=== PATIENT | male | born 1935 | race Caucasian/White ===

== ENCOUNTER → 2016-05-23 | Outpatient (CLI) | payer MEDICARE | END | disposition home or self-care (01) | LOC: GMAH 10:31 | PROVIDERS: ATTEND Family Medicine | DX: N40.0 Benign prostatic hyperplasia without lower urinary tract symptoms (principal); I10 Essential (primary) hypertension | CPT/HCPCS: 84550; G0103 ==

== ENCOUNTER → 2017-05-28 | Outpatient (CLI) | payer MEDICARE | LOC: GMAH 10:34 | PROVIDERS: ATTEND Family Medicine | DX: E78.2 Mixed hyperlipidemia (principal); N40.0 Benign prostatic hyperplasia without lower urinary tract symptoms; Z12.5 Encounter for screening for malignant neoplasm of prostate | CPT/HCPCS: 84443; 84550; G0103 ==

== ENCOUNTER 2018-02-02 00:49 | Emergency (ER) | payer MEDICARE ==
[2018-02-02] MEDS: ENOXAPARIN SODIUM 80 MG/0.8 ML SYG SUBCU ONE (01:21)
[2018-02-02] MEDS: ASPIRIN TABLET 325 MG TAB PO ONE (01:21)
[2018-02-02] MEDS: METOPROLOL TARTRATE 25 MG TAB PO ONE (01:21)
--- NOTE | 2018-02-02 01:58 | RAD ---
EXAM: PA and LATERAL CHEST RADIOGRAPHS CLINICAL INDICATION: New atrial fibrillation. COMPARISON: None. FINDINGS: Cardiac size is normal. Mild bibasilar pulmonary congestion. Lungs are otherwise clear. No pleural effusions, pneumothorax or free peritoneal gas. No suspicious hilar or mediastinal lymphadenopathy. Bones are intact on these two views. IMPRESSION: Mild bibasilar pulmonary congestion. Otherwise, normal chest radiographs. Electronically signed by: Wild Hicks MD 02/02/2018 1:56 AM [employer]
[2018-02-02 02:26] VITALS: O2SAT 97
[2018-02-02] MEDS: METOPROLOL TARTRATE 50 MG TAB PO ONE (03:49)
--- NOTE | 2018-02-02 05:09 | ED.PDOC ---
History of Present Illness - General Chief Complaint: Cardiovascular Problem Stated Complaint: irregular heartbeat Time Seen by Provider: 02/02/18 01:04 Source: patient Exam Limitations: no limitations - History of Present Illness Initial Comments: the patient is a very pleasant 82-year-old male presenting to the emergency room secondary to sensation of palpitations. It started 1-2 hours before arrival. He checked his heart rate on his blood pressure machine and it was in the 130s to 140s. The patient is a previous EMT and very knowledgeable. He is not having any chest pain or shortness of breath. No syncope or near syncope. No previous episodes of any heart rhythm issue. He is in atrial fibrillation with RVR on telemetry monitoring. Timing/Duration: 1-3 hours Severity: mild Improving Factors: nothing Worsening Factors: nothing Associated Symptoms: denies symptoms Allergies/Adverse Reactions: Allergies NO KNOWN ALLERGY Allergy (Verified 02/02/18 01:08) Home Medications: Ambulatory Orders Amlodipine Besylate 02/02/18 Aspirin [Aspirin EC] 81 mg PO 02/02/18 Diltiazem HCl Coated Beads [Diltiazem HCl ER] 120 mg PO BID #40 cap 02/02/18 Lisinopril 02/02/18 Metoprolol Succinate 02/02/18 Rivaroxaban [Xarelto] 20 mg PO DAILY #20 tablet 02/02/18 Review of Systems - Review of Systems Constitutional: States: no symptoms reported EENTM: States: no symptoms reported Respiratory: States: no symptoms reported Cardiology: States: palpitations Gastrointestinal/Abdominal: States: no symptoms reported Genitourinary: States: no symptoms reported Musculoskeletal: States: no symptoms reported Skin: States: no symptoms reported Neurological: States: no symptoms reported Endocrine: States: no symptoms reported All other Systems: No Change from Baseline Past Medical History (General) - Patient Medical History Hx Seizures: No Hx Stroke: No Hx Dementia: No Hx Asthma: No Hx of COPD: No Hx Cardiac Disorders: No Hx Congestive Heart Failure: No Hx Pacemaker: No Hx Hypertension: Yes Hx Thyroid Disease: No Hx Diabetes: No Hx Gastroesophageal Reflux: No Hx Renal Disease: No Hx Cancer: No Hx of HIV: No Hx Hepatitis C: No Hx MRSA: No Family Medical History - Family History Mother Family History: Unknown Physical Exam - Physical Exam General Appearance: Alert, Comfortable, No apparent distress Eye Exam: bilateral normal Ears, Nose, Throat: hearing grossly normal, normal ENT inspection, normal pharynx Neck: non-tender, full range of motion, supple Respiratory: lungs clear, normal breath sounds, no respiratory distress, no accessory muscle use Cardiovascular/Chest: normal peripheral pulses, no edema, tachycardia, irregularly irregular Peripheral Pulses: radial,right: 2+, radial,left: 2+, dorsalis pedis,right: 2+, dorsalis pedis,left: 2+ Gastrointestinal/Abdominal: non tender, soft Rectal Exam: deferred Back Exam: no CVA tenderness, no vertebral tenderness Extremity: normal range of motion, non-tender, normal inspection, no pedal edema , normal capillary refill 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, alert, normal mood/affect, oriented x 3 Skin Exam: normal color Comments: Vital Signs - 24 hr 02/02/18 02/02/18 02/02/18 00:55 01:16 01:54 Temperature 97.7 F Pulse Rate [ 134 H 128 H 91 H monitor] Respiratory 18 16 Rate Blood Pressure 125/83 120/78 [Left Arm] O2 Sat by Pulse 99 96 Oximetry 02/02/18 02/02/18 02/02/18 02:25 03:00 03:55 Temperature Pulse Rate [ 81 89 92 H monitor] Respiratory 18 16 16 Rate Blood Pressure 121/67 115/62 113/80 [Left Arm] O2 Sat by Pulse 97 97 97 Oximetry Progress - Progress Progress: 02/02/18 05:11 the patient is an 82-year-old male presenting with what appears to be new onset A. fib with RVR initially in the 130s to 140s. The patient has achieved moderate rate control in the range of 90-110 with a repeat oral dose of metoprolol and a dose of IV diltiazem. He has also received a dose of Lovenox. An initial set of cardiac enzymes as well as a repeat approximately 4- 5 hours after start of symptoms shows no evidence of any heart attack at this point. It is recommended that the patient come into the hospital for observation and a longer rule out as well as medication adjustments for heart rate control. The patient has declined this. He is to contact his primary care doctor to get set up with the hopper feeder preferably later this week. He is to increase the metoprolol that he is taking currently to twice daily. He will be written for Cardizem twice daily as well to help with rate control. Additionally he will be written for xarelto daily as a blood thinner. He does need to keep follow-up with cardiology. No evidence of hypotension. No evidence of heart attack at this point. ER warnings were given. - Results/Orders Results/Orders: 02/02/18 01:15 Telemetry .CONTINUOUS B-TYPE NATRIURETIC PEPTIDE/BNP Stat CARDIAC ENZYME GROUP Stat COMPLETE METABOLIC PROFILE Stat MAGNESIUM Stat THYROID STIMULATING HORMONE Stat 02/03/18 01:15 EKG STAT shows A. fib with RVR at 118 bpm. Borderline R-wave progression. Very mild left axis deviation. Occasional PVCs. No ST segment or T-wave changes definitive for acute ischemia. Normal QT interval. Laboratory Results - last 24 hr 02/02/18 02/02/18 02/02/18 01:15 01:15 01:15 WBC 6.8 RBC 4.57 L Hgb 14.2 Hct 42.2 MCV 92.4 MCH 31.0 MCHC 33.6 RDW 13.7 Plt Count 175 MPV 8.5 Absolute Neuts (auto) 4.30 Absolute Lymphs (auto) 1.70 Absolute Monos (auto) 0.50 Absolute Eos (auto) 0.30 Absolute Basos (auto) 0.10 Neutrophils % 62.8 Lymphocytes % 25.4 Monocytes % 6.8 Eosinophils % 4.1 Basophils % 0.9 PT 10.3 INR 1.03 PTT (SP) 27.8 D-Dimer, Quantitative 0.42 Sodium 139 Potassium 3.8 Chloride 105 Carbon Dioxide 28 Anion Gap 9.8 L BUN 25 H Creatinine 1.45 H BUN/Creatinine Ratio 17.2 Random Glucose 115 H Serum Osmolality 282.9 Calcium 9.3 Magnesium 1.9 Total Bilirubin 0.4 AST 24 ALT 16 Alkaline Phosphatase 51 Creatine Kinase 109 CK-MB (CK-2) 2.3 CK-MB (CK-2) % Troponin I < 0.02 B-Natriuretic Peptide 292.0 H* Serum Total Protein 7.1 Albumin 4.2 Globulin 2.9 Albumin/Globulin Ratio 1.4 TSH 2.78 Urine Color Urine Appearance Urine pH Ur Specific [place] Urine Protein Urine Glucose (UA) Urine Ketones Urine Blood Urine Nitrite Urine Bilirubin Urine Urobilinogen Ur Leukocyte Esterase Urine RBC Urine WBC Ur Epithelial Cells Urine Bacteria 02/02/18 02/02/18 01:45 04:04 WBC RBC Hgb Hct MCV MCH MCHC RDW Plt Count MPV Absolute Neuts (auto) Absolute Lymphs (auto) Absolute Monos (auto) Absolute Eos (auto) Absolute Basos (auto) Neutrophils % Lymphocytes % Monocytes % Eosinophils % Basophils % PT INR PTT (SP) D-Dimer, Quantitative Sodium Potassium Chloride Carbon Dioxide Anion Gap BUN Creatinine BUN/Creatinine Ratio Random Glucose Serum Osmolality Calcium Magnesium Total Bilirubin AST ALT Alkaline Phosphatase Creatine Kinase 98 CK-MB (CK-2) 2.2 CK-MB (CK-2) % Not Reportable Troponin I < 0.02 B-Natriuretic Peptide Serum Total Protein Albumin Globulin Albumin/Globulin Ratio TSH Urine Color Yellow Urine Appearance Clear Urine pH 6.5 Ur Specific [place] 1.010 Urine Protein Negative Urine Glucose (UA) Negative Urine Ketones Negative Urine Blood Trace-intact H Urine Nitrite Negative Urine Bilirubin Negative Urine Urobilinogen 0.2 Ur Leukocyte Esterase Negative Urine RBC 0 Urine WBC 0-1 Ur Epithelial Cells 0 Urine Bacteria 0 chest x-ray shows mild lower pulmonary congestion. Departure - Departure Clinical Impression: Atrial fibrillation with rapid ventricular response Disposition: Discharge to Home or Self Care Condition: Fair Departure Forms: ED Discharge - Pt. Copy, Patient Portal Self Enrollment Instructions: Atrial Fibrillation (DC) Diet: low salt diet Activity: increase activity as tolerated Referrals: Juma Grove MD [Primary Care Provider] - 1-2 Days Prescriptions: Diltiazem HCl Coated Beads [Diltiazem HCl ER] 120 mg PO BID #40 cap Rivaroxaban [Xarelto] 20 mg PO DAILY #20 tablet Home Medications: Ambulatory Orders Amlodipine Besylate 02/02/18 Aspirin [Aspirin EC] 81 mg PO 02/02/18 Diltiazem HCl Coated Beads [Diltiazem HCl ER] 120 mg PO BID #40 cap 02/02/18 Lisinopril 02/02/18 Metoprolol Succinate 02/02/18 Rivaroxaban [Xarelto] 20 mg PO DAILY #20 tablet 02/02/18 Additional Instructions: the patient is an 82-year-old male presenting with what appears to be new onset A. fib with RVR initially in the 130s to 140s. The patient has achieved moderate rate control in the range of 90-110 with a repeat oral dose of metoprolol and a dose of IV diltiazem. He has also received a dose of Lovenox. An initial set of cardiac enzymes as well as a repeat approximately 4- 5 hours after start of symptoms shows no evidence of any heart attack at this point. It is recommended that the patient come into the hospital for observation and a longer rule out as well as medication adjustments for heart rate control. The patient has declined this. He is to contact his primary care doctor to get set up with the hopper feeder preferably later this week. He is to increase the metoprolol that he is taking currently to twice daily. He will be written for Cardizem twice daily as well to help with rate control. he can hold his amlodipine once he starts the Cardizem. Additionally he will be written for xarelto daily as a blood thinner. He does need to keep follow-up with cardiology. No evidence of hypotension. No evidence of heart attack at this point. ER warnings were given.
[2018-02-02 05:34] VITALS: BP 116/70; TEMP 97.9
== END 2018-02-02 05:36 | disposition left against medical advice (07) ==
LOC: ER 00:49
DX: I48.91 Unspecified atrial fibrillation (principal); R00.0 Tachycardia, unspecified; I49.3 Ventricular premature depolarization; I10 Essential (primary) hypertension; Z53.29 Procedure and treatment not carried out because of patient's decision for other reasons

== ENCOUNTER 2018-04-07 10:10 | Emergency (ER) | payer MEDICARE ==
--- NOTE | 2018-04-07 10:59 | RAD ---
EXAM DESCRIPTION: Chest,1 View CLINICAL HISTORY: near syncope, afib with rvr COMPARISON: Chest radiograph dated February 02, 2018 FINDINGS: Cardiomediastinal silhouette and pulmonary vascularity are within normal limits. Lungs are clear without focal consolidations. Bilateral costophrenic angles are sharp. No pneumothorax. Visualized osseous structures show no destructive lesions. IMPRESSION: No acute cardiopulmonary process. Electronically signed by: Ke Damian MD 04/07/2018 10:58 AM [employer]
[2018-04-07] MEDS ORDERED: SODIUM CHLORIDE 0.9% 1000ML 500 ML IVS ONE (12:46)
--- NOTE | 2018-04-07 15:01 | ED.PDOC ---
History of Present Illness - General Chief Complaint: Cardiovascular Problem Stated Complaint: Weakness, unable to focus Time Seen by Provider: 04/07/18 10:17 Source: patient Exam Limitations: no limitations - History of Present Illness Initial Comments: the patient is an 82-year-old male presenting to the emergency room secondary to a near syncopal episode while at a caf this morning. He did not pass all the way out. No chest pain and no real feeling of palpitations. He had just seen his primary care doctor earlier and had fairly normal vital signs at that time but he had made the appointment due to an elevated heart rate on his blood pressure check in the morning. He does have a known history of atrial fibrillation for at least the last few months. He has not been able to see a turbine mechanic yet but it was scheduled to see one this coming Friday. He is on blood thinners in the form of eliquis. he is actually feeling much better about time he arrived here. EMS recorded blood pressure 90/50 with a heart rate in the 110s at the caf. He is still of course in atrial fibrillation. It seems the patient has been taking his metoprolol and Cardizem and lisinopril at the same time each morning. Timing/Duration: momentarily Severity: moderate Improving Factors: nothing Worsening Factors: nothing Associated Symptoms: weakness Allergies/Adverse Reactions: Allergies NO KNOWN ALLERGY Allergy (Verified 02/02/18 01:08) Home Medications: Ambulatory Orders Aspirin [Aspirin EC] 81 mg PO DAILY 02/02/18 Lisinopril 20 mg PO DAILY 02/02/18 Metoprolol Succinate [Metoprolol Succinate ER] 50 mg PO DAILY 02/02/18 Apixaban [Eliquis] 2.5 mg PO BID 04/07/18 Diltiazem HCl Coated Beads [Diltiazem HCl ER] 240 mg PO DAILY 04/07/18 Review of Systems - Review of Systems Constitutional: States: malaise EENTM: States: no symptoms reported Respiratory: States: no symptoms reported Cardiology: States: no symptoms reported Gastrointestinal/Abdominal: States: no symptoms reported Genitourinary: States: no symptoms reported Musculoskeletal: States: no symptoms reported Skin: States: no symptoms reported Neurological: States: see HPI, anxiety Endocrine: States: no symptoms reported All other Systems: No Change from Baseline Past Medical History (General) - Patient Medical History Hx Seizures: No Hx Stroke: No Hx Dementia: No Hx Asthma: No Hx of COPD: Yes Hx Cardiac Disorders: Yes - Atrial fib Hx Congestive Heart Failure: No Hx Pacemaker: No Hx Hypertension: Yes Hx Thyroid Disease: No Hx Diabetes: No Hx Gastroesophageal Reflux: No Hx Renal Disease: No Hx Cancer: No Hx of HIV: No Hx Hepatitis C: No Hx MRSA: No - Vaccination History Hx Influenza Vaccination: Yes - 2018 Hx Pneumococcal Vaccination: No - Social History Hx Tobacco Use: No Family Medical History - Family History Mother Family History: Unknown Physical Exam - Physical Exam General Appearance: Alert, Anxious, Comfortable, No apparent distress Eye Exam: bilateral normal Ears, Nose, Throat: hearing grossly normal, normal ENT inspection, normal pharynx Neck: full range of motion, supple Respiratory: lungs clear, normal breath sounds, no respiratory distress, no accessory muscle use Cardiovascular/Chest: normal peripheral pulses, no edema, other - borderline tachycardia with atrial fibrillation. Heart rates have ranged from 75-115. 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 The patient was technically tilt positive by blood pressure from lying to sitting. Progress - Progress Progress: 04/07/18 15:04 the patient is an 82-year-old male presenting to the emergency room secondary to a near syncopal episode which involved atrial fibrillation with rapid ventricular rate and mild hypotension. No evidence of any recurrence. He does have some mild dehydration as well and did receive a small IV fluid bolus. he should slightly increase his fluid intake at home. The patient is reluctant to be monitored any longer here, so he will be discharged for close follow-up with his primary care doctor. laboratory work is reassuring, with no rise in cardiac enzymes. Chest x-ray is reassuring. No evidence of any fluid overload. It is possible that the patient's medicines may have accumulated on him this morning as he takes all 3 of his blood pressure and heart rate control medications in the morning at same time. The patient has been discussed with his primary care doctor, Dr. Grove. He has agreed to have the patient change the Cardizem to a nighttime dose, which may also help prevent morning tachycardia due to medications wearing off. If he continues to have episodes of hypotension after making this medication change, then consideration could be given towards temporarily holding or halving his lisinopril dosage. of note, the patient's BUN and BNP are both elevated in comparison to prior. this may possibly be an indicator that the patient is hypotensive a little more of the t giorgio than has previously been known. The patient does need to keep follow-up with his turbine mechanic. Certainly an echocardiogram in the very near future is warranted and he may require some form of resynchronization therapy to prevent progression of congestive heart failure. ER warnings were given for any worsening. - Results/Orders Results/Orders: chest x-ray shows no evidence of significant fluid overload or infiltrate. No cardiomegaly. Laboratory Tests 04/07/18 04/07/18 04/07/18 10:25 10:25 12:25 WBC 8.4 RBC 4.75 Hgb 14.8 Hct 44.3 MCV 93.4 MCH 31.1 H MCHC 33.3 RDW 13.9 Plt Count 203 MPV 8.7 Absolute Neuts (auto) 6.30 Absolute Lymphs (auto) 1.40 Absolute Monos (auto) 0.50 Absolute Eos (auto) 0.20 Absolute Basos (auto) 0.00 Neutrophils % 74.9 Lymphocytes % 16.9 L Monocytes % 5.4 Eosinophils % 2.2 Basophils % 0.6 Sodium 137 Potassium 4.2 Chloride 105 Carbon Dioxide 24 Anion Gap 12.2 BUN 23 H Creatinine 1.78 H BUN/Creatinine Ratio 12.9 Random Glucose 125 H Serum Osmolality 279.0 Calcium 8.9 Magnesium 1.9 Total Bilirubin 0.7 AST 20 ALT 15 Alkaline Phosphatase 53 Creatine Kinase 73 CK-MB (CK-2) 2.0 CK-MB (CK-2) % Not Reportable Troponin I < 0.02 B-Natriuretic Peptide 788.0 H* Serum Total Protein 7.0 Albumin 3.9 Globulin 3.1 Albumin/Globulin Ratio 1.3 Urine Color Yellow Urine Appearance Clear Urine pH 5.5 Ur Specific [place] >= 1.030 Urine Protein 30 Urine Glucose (UA) Negative Urine Ketones Negative Urine Blood Moderate H Urine Nitrite Negative Urine Bilirubin Negative Urine Urobilinogen 0.2 Ur Leukocyte Esterase Negative Urine RBC 0 Urine WBC 0-1 Ur Epithelial Cells 0-1 Urine Bacteria 0 Urine Mucus Small 04/07/18 14:16 WBC RBC Hgb Hct MCV MCH MCHC RDW Plt Count MPV Absolute Neuts (auto) Absolute Lymphs (auto) Absolute Monos (auto) Absolute Eos (auto) Absolute Basos (auto) Neutrophils % Lymphocytes % Monocytes % Eosinophils % Basophils % Sodium Potassium Chloride Carbon Dioxide Anion Gap BUN Creatinine BUN/Creatinine Ratio Random Glucose Serum Osmolality Calcium Magnesium Total Bilirubin AST ALT Alkaline Phosphatase Creatine Kinase 62 CK-MB (CK-2) 1.7 CK-MB (CK-2) % Not Reportable Troponin I < 0.02 B-Natriuretic Peptide Serum Total Protein Albumin Globulin Albumin/Globulin Ratio Urine Color Urine Appearance Urine pH Ur Specific [place] Urine Protein Urine Glucose (UA) Urine Ketones Urine Blood Urine Nitrite Urine Bilirubin Urine Urobilinogen Ur Leukocyte Esterase Urine RBC Urine WBC Ur Epithelial Cells Urine Bacteria Urine Mucus Departure - Departure Clinical Impression: Near syncope, Atrial fibrillation with RVR Disposition: Discharge to Home or Self Care Condition: Fair Departure Forms: ED Discharge - Pt. Copy, Patient Portal Self Enrollment Instructions: Near Fainting (DC) Diet: regular diet Activity: increase activity as tolerated Referrals: Juma Grove MD [Primary Care Provider] - 1-5 Days Home Medications: Ambulatory Orders Aspirin [Aspirin EC] 81 mg PO DAILY 02/02/18 Lisinopril 20 mg PO DAILY 02/02/18 Metoprolol Succinate [Metoprolol Succinate ER] 50 mg PO DAILY 02/02/18 Apixaban [Eliquis] 2.5 mg PO BID 04/07/18 Diltiazem HCl Coated Beads [Diltiazem HCl ER] 240 mg PO DAILY 04/07/18 Additional Instructions: the patient is an 82-year-old male presenting to the emergency room secondary to a near syncopal episode which involved atrial fibrillation with rapid ventricular rate and mild hypotension. No evidence of any recurrence. He does have some mild dehydration as well and did receive a small IV fluid bolus. he should slightly increase his fluid intake at home. The patient is reluctant to be monitored any longer here, so he will be discharged for close follow-up with his primary care doctor. laboratory work is reassuring, with no rise in cardiac enzymes. Chest x-ray is reassuring. No evidence of any fluid overload. It is possible that the patient's medicines may have accumulated on him this morning as he takes all 3 of his blood pressure and heart rate control medications in the morning at same time. The patient has been discussed with his primary care doctor, Dr. Grove. He has agreed to have the patient change the Cardizem to a nighttime dose, which may also help prevent morning tachycardia due to medications wearing off. If he continues to have episodes of hypotension after making this medication change, then consideration could be given towards temporarily holding or halving his lisinopril dosage. of note, the patient's BUN and BNP are both elevated in comparison to prior. this may possibly be an indicator that the patient is hypotensive a little more of the time than has previously been known. The patient does need to keep follow-up with his turbine mechanic. Certainly an echocardiogram in the very near future is warranted and he may require some form of resynchronization therapy to prevent progression of congestive heart failure. ER warnings were given for any worsening.
[2018-04-07 15:20] VITALS: BP 117/80; O2SAT 98
== END 2018-04-07 15:22 | disposition home or self-care (01) ==
LOC: ER 10:10
DX: R55 Syncope and collapse (principal); I48.91 Unspecified atrial fibrillation; R00.0 Tachycardia, unspecified; J44.9 Chronic obstructive pulmonary disease, unspecified; I10 Essential (primary) hypertension; Z79.899 Other long term (current) drug therapy; Z79.82 Long term (current) use of aspirin
CPT/HCPCS: 36415; 71045; 80053; 81001; 82550; 82553; 83735; 83880; 84484; 85025; 87502; 93005; J7030

== ENCOUNTER → 2018-06-15 | Outpatient (CLI) | payer MEDICARE | LOC: GMAH 13:12 | PROVIDERS: ATTEND Family Medicine | DX: I10 Essential (primary) hypertension (principal); Z12.5 Encounter for screening for malignant neoplasm of prostate | CPT/HCPCS: 84443; 84550; G0103 ==

== ENCOUNTER → 2018-12-16 | Outpatient (CLI) | payer MEDICARE | LOC: GMAM 11:38 | PROVIDERS: ATTEND Family Medicine | DX: Z12.5 Encounter for screening for malignant neoplasm of prostate (principal); E55.9 Vitamin D deficiency, unspecified; I10 Essential (primary) hypertension; E74.39 Other disorders of intestinal carbohydrate absorption; E56.9 Vitamin deficiency, unspecified; J44.1 Chronic obstructive pulmonary disease with (acute) exacerbation | CPT/HCPCS: 82306; G0103 ==

== ENCOUNTER 2018-12-30 09:28 | Observation (INO) | payer MEDICARE ==
[2018-12-30] MEDS ORDERED: SODIUM CHLORIDE 0.9% (FLUSH) 10 ML SYG IV PRN (12:08)
[2018-12-30] MEDS ORDERED: ACETAMINOPHEN 325 MG TAB PO PRN (12:08)
[2018-12-30] MEDS ORDERED: MORPHINE SULFATE INJ 10 MG/ML VIAL IV PRN (12:08)
[2018-12-30] MEDS ORDERED: NITROGLYCERIN 0.4 MG 25 EA TAB SL PRN (12:08)
[2018-12-30] MEDS ORDERED: IV SET AND CAP CHANGE INJ INJ SCH (12:30)
--- NOTE | 2018-12-30 14:34 | RAD ---
EXAM DESCRIPTION: Chest,1 View CLINICAL HISTORY: hypotension COMPARISON: April 07, 2018 IMPRESSION: Single AP portable upright view of the chest shows cardiac silhouette and pulmonary vasculature to be within normal limits. Lungs are normally aerated and clear. No obvious pleural effusion or pneumothorax is seen. Electronically signed by: Ty Kramer MD 12/30/2018 2:32 PM CDT
[2018-12-30] MEDS ORDERED: SODIUM CHLORIDE 0.45% 1000ML 1,000 ML IVS ONE (17:09)
[2018-12-30] MEDS ORDERED: APIXABAN 5 MG TAB PO ONE (19:18)
[2018-12-30] MEDS ORDERED: PANTOPRAZOLE SODIUM TAB 40 MG PO ONE (19:19)
[2018-12-30] MEDS: NON-FORMULARY MEDICATION 1 EA MIS (Apixaban [Eliquis] 2.5 MG) PO SCH (20:55)
[2018-12-30] MEDS: SODIUM CHLORIDE 0.9% (FLUSH) 10 ML SYG IV SCH (21:12)
[2018-12-31] MEDS ORDERED: PANTOPRAZOLE SODIUM TAB 40 MG PO SCH (06:30)
[2018-12-31] MEDS ORDERED: APIXABAN 5 MG TAB PO ONE (08:56)
[2018-12-31] MEDS: NON-FORMULARY MEDICATION 1 EA MIS (Apixaban [Eliquis] 2.5 MG) PO SCH (08:57)
[2018-12-31] MEDS ORDERED: METOPROLOL TARTRATE 25 MG TAB PO SCH (09:00)
[2018-12-31] MEDS ORDERED: APIXABAN 5 MG TAB PO SCH (09:00)
[2018-12-31 09:27] VITALS: BP 129/78; TEMP 97.8
[2018-12-31] MEDS: SODIUM CHLORIDE 0.9% (FLUSH) 10 ML SYG IV SCH (09:35)
[2018-12-31 12:46] VITALS: O2SAT 95
--- NOTE | 2018-12-31 14:52 | SSS ---
SUPERVISING PHYSICIAN: Tashi Grace MD DISCHARGE DIAGNOSES: 1. Atrial fibrillation with occasional episodes of an accelerated rate, presently on Eliquis, metoprolol and diltiazem. 2. Hypertension with episodes of hypotension. 3. Questionable syncopal episode without loss of consciousness. May be related to his hypotension and low heart rate although the patient believes it is due to a bad knee. 4. Chronic obstructive pulmonary disease without exacerbation. 5. Hyperlipidemia, presently on no medication. HISTORY OF PRESENT ILLNESS: This is an 83-year-old male patient who was seen in his primary care physician's office on the day of admission. He had been feeling poorly over the last several days and he felt like it was due to his heart rate going up and down as well as his blood pressure being poorly controlled as it was also up and down. He was very anxious. He had had some increased blood pressure over the last few weeks. He was on diltiazem, lisinopril and metoprolol. Hydrochlorothiazide was added and then was discontinued. He was seen in the clinic and had an elevated heart rate that was up to 118. His blood pressure was 90/67. There had been no nausea, vomiting, shortness of breath, but he just felt weak all over and he said he would have periods of his heart rate going up to the 1-teens, then it would go down to his usual rate around 60. 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 Dr. Grace called and asked that we place the patient in observation to watch his heart rate and to adjust his medications. The patient was admitted for observation to the hospital. PAST MEDICAL HISTORY: 1. Atrial fibrillation. 2. Hyperlipidemia. 3. Hypertension. 4. Chronic obstructive pulmonary disease. PAST SURGICAL HISTORY: 1. Hernia repair in 1992. 2. Cataract surgery. OUTPATIENT MEDICATIONS: 1. Eliquis. 2. Metoprolol. 3. Diltiazem. 4. Lisinopril. ALLERGIES: NO KNOWN DRUG ALLERGIES. FAMILY HISTORY: Unknown. SOCIAL HISTORY: He is . 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 He quit smoking in August of this year and he drinks alcohol on a very rare occasion. He denies any illicit drug use. REVIEW OF SYSTEMS: GENERAL: Negative for fever, fatigue or weight changes. HEENT: Negative for sinus symptoms, ear pain, vision changes or sore throat. RESPIRATORY: Negative for wheezing, coughing or shortness of breath. CARDIAC: Positive for occasional palpitations and periods of hypertension/hypotension. Negative for chest pain. GASTROINTESTINAL: Negative for nausea, vomiting, diarrhea, constipation. GENITOURINARY: Negative for hematuria, dysuria or polyuria. MUSCULOSKELETAL: Negative for arthralgias, myalgias. SKIN: Negative for lesions or rashes. NEUROLOGIC: Positive for weakness. Negative for headache or seizures. PSYCHIATRIC: Positive for anxiety. Negative for depression or sadness. PHYSICAL EXAMINATION: VITAL SIGNS: He has been afebrile. Heart rate has run between 54 and 70. Blood pressure has run between 103/66 to 131/80. Respiratory rate 18 to 24. O2 saturation 95% to 96% on room air. GENERAL: This is an 83-year-old male patient who is sitting up in his hospital bed. He is in no acute distress. HEENT: Normocephalic, atraumatic. Pupils are equal and reactive. Oropharynx is clear. NECK: Supple without mass. RESPIRATORY: Essentially clear to auscultation bilaterally. CHEST: There is equal rise and fall of the chest with inspiration and expiration. CARDIOVASCULAR: Bradycardic to regular rate, slightly irregular rhythm. GASTROINTESTINAL: Abdomen is soft, nondistended, nontender. Bowel sounds are positive. SKIN: Warm and dry. NEUROLOGIC: Awake, alert and oriented times three. Cranial nerves II-XII are grossly intact. LABORATORY: WBCs within normal limits. Initial troponin was 0.09. It went up to 0.1 and then was back down to 0.08. Electrolytes were within normal limits. At the clinic, his creatinine was elevated to 2.5. Today after fluids, it is 2.15. Triglycerides 83, LDL 97, HDL 32. Chest x-ray shows single AP portable view of chest shows cardiac silhouette and pulmonary vascular to be within normal limits. Lungs are normally aerated and clear with no obvious pleural effusion or pneumothorax seen. Echocardiogram shows 1) Normal left ventricular size and systolic function with an estimated ejection fraction of 55% to 60% and no obvious regional wall motion abnormality. 2) Normal right ventricular size and function. 3) Mild aortic, trace mitral and tricuspid regurgitation. 4) Normal pericardium. All other labs and films have been reviewed via the EMR. HOSPITAL COURSE: The patient was admitted for observation. There were no complaints of chest pain, nausea, vomiting, shortness of breath. The laboratory monitor showed no accelerated atrial beats. His heart rate remained controlled as well as his blood pressures were within normal limits. His HCTZ and his diltiazem had been discontinued at the clinic per Dr. Forte' request. In the hospital, we held his lisinopril as well as his metoprolol succinate initially. He was given a liter of fluids due to his elevated creatinine. This morning, he was given 25 mg of metoprolol tartrate. He was observed over the next 4 hours. There were again no changes in his heart rate or no increase in blood pressure and he will be discharged with close followup with Dr. Grace and Dr. Forte. DISCHARGE PLAN: The patient will be discharged home in stable condition. He is to return to the hospital for any weakness or syncopal episodes or elevated blood pressure, heart rate. He has an appointment with Dr. Grace in the morning at 8:45. He has an appointment at this point with Dr. Forte on 01/19/19. I have called his office and he is to have an appointment with Dr. Forte this Friday. There was no time given and at his followup appointment, Dr. Grace can decide which appointment he needs to go to for Dr. Forte. If he decides on the 01/05/19 appointment, his office will need to be called to verify the time. His diltiazem and HCTZ were discontinued for now. He was told to hold his lisinopril until he speaks with Dr. Grace. He usually takes 25 mg of metoprolol succinate in the morning. I have changed his metoprolol succinate to [address] Grace can decide if he would like to increase his metoprolol or add his lisinopril back. He normally takes 20 mg of lisinopril and it is recommended that if restarted on the lisinopril to go down to 10 mg. He is to resume his previous diet and activity. He is also to resume his Eliquis. He is to return to the hospital or followup with Dr. Grace's office for any problems or complications. DISCHARGE MEDICATIONS: 1. Eliquis 2.5 mg b.i.d. 2. Metoprolol succinate 25 mg at bedtime. 3. Lisinopril 20 mg daily is presently on hold. #[id number] MTDD
== END 2018-12-31 13:45 | disposition home or self-care (01) ==
LOC: GMAM 09:28 → MS 11:30
PROVIDERS: ADMIT Nurse Practitioner Acute Care; ATTEND Nurse Practitioner Acute Care
DX: I48.0 Paroxysmal atrial fibrillation (principal); I95.9 Hypotension, unspecified; R00.1 Bradycardia, unspecified; I12.9 Hypertensive chronic kidney disease with stage 1 through stage 4 chronic kidney disease, or unspecified chronic kidney disease; N18.3 Chronic kidney disease, stage 3 (moderate); J44.9 Chronic obstructive pulmonary disease, unspecified; E78.2 Mixed hyperlipidemia; R53.1 Weakness; I34.0 Nonrheumatic mitral (valve) insufficiency; I36.1 Nonrheumatic tricuspid (valve) insufficiency; E55.9 Vitamin D deficiency, unspecified; Z79.01 Long term (current) use of anticoagulants; Z79.899 Other long term (current) drug therapy; Z87.891 Personal history of nicotine dependence
CPT/HCPCS: 96360; 96361 ×2; J7799; 82553 ×3; 80053; 80061; 36415 ×3; 85025; 82550 ×3; 84484 ×3; 71045; 94760 ×2; 93306; 93005 ×2

== ENCOUNTER → 2019-05-25 | Outpatient (CLI) | payer MEDICARE | DX: R07.2 Precordial pain (principal) ==

== ENCOUNTER 2019-07-24 18:08 | Observation (INO) | payer MEDICARE ==
[2019-07-24] MEDS ORDERED: SODIUM CHLORIDE 0.9% (FLUSH) 10 ML SYG IV PRN ×2 (18:14→23:22)
[2019-07-24] MEDS ORDERED: SODIUM CHLORIDE 0.9% 1000ML 1,000 ML IVS ONE (18:40)
--- NOTE | 2019-07-24 19:10 | RAD ---
EXAM DESCRIPTION: Chest,1 View CLINICAL HISTORY: 83 years Male low blood pressure COMPARISON: December 30, 2018. TECHNIQUE: AP view of the chest was obtained. FINDINGS: Cardiac size is within normal limits. Central vessels are not increased. Airspace opacity right infrahilar region. No abnormal airspace opacity on left. No effusions bilaterally. No pneumothorax. IMPRESSION: Infiltrate and atelectatic change right infrahilar region. Electronically signed by: Vicky Mahoney MD 07/24/2019 7:09 PM CDT
[2019-07-24] MEDS ORDERED: METOPROLOL TARTRATE INJ 5 MG/5 ML VIAL IV ONE (20:58)
[2019-07-24] MEDS ORDERED: METOPROLOL SUCCINATE XL 25 MG TAB PO SCH (21:00)
--- NOTE | 2019-07-24 21:01 | ED.PDOC ---
History of Present Illness - General Chief Complaint: Blood Pressure Problem Stated Complaint: my blood pressure has been low Time Seen by Provider: 07/24/19 18:13 Source: patient - History of Present Illness Initial Comments: 83 yo male with PMH of HTN, a-fib who presents with cc of low blood pressure and high heart rate. Reports he checks his vitals every morning and night. First notice them to be abnormal yesterday morning with HR of 125 and BP low. Has been persistently abnormal since then. Reports BP became 80s/40s this evening and HR remain elevated so he came in to be checked out. Only symptom reported is slight lightheadedness, which worsens with activity. Denies any chest pain, dyspnea, palpitations, cough, fevers, chills, abd pain, n/v/d, leg swelling. He reports taking his home BP medications but without any improvement. 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 Allergies/Adverse Reactions: Allergies NO KNOWN ALLERGY Allergy (Verified 07/25/19 00:02) Home Medications: Ambulatory Orders Apixaban [Eliquis] 2.5 mg PO BID 04/07/18 Amlodipine Besylate 5 mg PO DAILY 07/24/19 Lisinopril 10 mg PO DAILY 07/24/19 Metoprolol Succinate [Toprol Xl] 50 mg PO BEDTIME 07/24/19 Review of Systems - Review of Systems Review of Systems: 07/25/19 00:54 as per HPI All other Systems: Reviewed and Negative Past Medical History (General) - Patient Medical History Hx Seizures: No Hx Stroke: No Hx Dementia: No Hx Asthma: No Hx of COPD: Yes Hx Cardiac Disorders: Yes - Atrial fib Hx Congestive Heart Failure: No Hx Pacemaker: No Hx Hypertension: Yes Hx Thyroid Disease: No Hx Diabetes: No Hx Gastroesophageal Reflux: No Hx Renal Disease: No Hx Cancer: No Hx of HIV: No Hx Hepatitis C: No Hx MRSA: No - Vaccination History Hx Tetanus, Diphtheria Vaccination: No Hx Influenza Vaccination: Yes - 2018 Hx Pneumococcal Vaccination: No - Social History Hx Tobacco Use: No Hx Alcohol Use: No Hx Substance Use: No Family Medical History - Family History Mother Family History: Unknown Father Family History: Unknown Living Status: Cause of : Old age Physical Exam - Physical Exam General Appearance: Agitated, Comfortable, No apparent distress Eye Exam: bilateral normal Ears, Nose, Throat: normal ENT inspection, normal pharynx, hearing decreased Neck: non-tender, full range of motion, supple, normal inspection Respiratory: chest non-tender, lungs clear, normal breath sounds, no respiratory distress, no accessory muscle use Cardiovascular/Chest: normal peripheral pulses, no edema, no gallop, no JVD, no murmur, irregularly irregular Peripheral Pulses: radial,right: 2+, radial,left: 2+ Gastrointestinal/Abdominal: non tender, soft, no organomegaly Back Exam: normal inspection, no CVA tenderness, no vertebral tenderness Extremity: normal range of motion, non-tender, normal inspection, no pedal edema, no calf tenderness 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 HR improved to 90s-110s with Diltiazem 20 mg IV total now. BP 108/65. Pt remains stable. CXR with ?atelectasis vs infiltrate R infrahilar region per my read. Doubt PNA as no clinical sx's, no fever, WBC normal. Trop <0.02. BNP 680 which seems near his baseline. Pt on exam appears euvolemic. Plan to admit for further treatment and monitoring. Toñito Michelle MD Billing #[id number] 07/24/19 18:14 IV Care:Saline Lock per Protoc QSHIFT Telemetry .ONCE Sodium Chloride 0.9% (Flush) [Saline Flush Syringe] 10 ml IV PRN PRN 07/24/19 18:15 EKG STAT 07/25/19 09:00 Pulse Ox Daily Laboratory Results - last 24 hr 07/24/19 07/24/19 07/24/19 18:42 18:42 18:42 WBC 7.0 RBC 4.89 Hgb 14.9 Hct 44.8 MCV 91.6 MCH 30.6 MCHC 33.4 RDW 14.5 Plt Count 184 MPV 7.9 Absolute Neuts (auto) 4.90 Absolute Lymphs (auto) 1.40 Absolute Monos (auto) 0.50 Absolute Eos (auto) 0.20 Absolute Basos (auto) 0.10 Neutrophils % 69.1 Lymphocytes % 20.4 Monocytes % 6.8 Eosinophils % 2.5 Basophils % 1.2 Sodium 139 Potassium 4.1 Chloride 108 Carbon Dioxide 24 Anion Gap 11.1 L BUN 27 H Creatinine 1.55 H BUN/Creatinine Ratio 17.4 Random Glucose 105 Serum Osmolality 283.0 Lactic Acid Calcium 9.0 Total Bilirubin 0.7 AST 20 ALT 13 Alkaline Phosphatase 36 L Troponin I < 0.02 B-Natriuretic Peptide 680.0 H* Serum Total Protein 7.1 Albumin 4.1 Globulin 3.0 Albumin/Globulin Ratio 1.4 Urine Color Urine Appearance Urine pH Ur Specific [place] Urine Protein Urine Glucose (UA) Urine Ketones Urine Blood Urine Nitrite Urine Bilirubin Urine Urobilinogen Ur Leukocyte Esterase Urine RBC Urine WBC Ur Epithelial Cells Urine Bacteria Urine Mucus 07/24/19 07/24/19 18:42 20:00 WBC RBC Hgb Hct MCV MCH MCHC RDW Plt Count MPV Absolute Neuts (auto) Absolute Lymphs (auto) Absolute Monos (auto) Absolute Eos (auto) Absolute Basos (auto) Neutrophils % Lymphocytes % Monocytes % Eosinophils % Basophils % Sodium Potassium Chloride Carbon Dioxide Anion Gap BUN Creatinine BUN/Creatinine Ratio Random Glucose Serum Osmolality Lactic Acid 0.8 Calcium Total Bilirubin AST ALT Alkaline Phosphatase Troponin I B-Natriuretic Peptide Serum Total Protein Albumin Globulin Albumin/Globulin Ratio Urine Color Yellow Urine Appearance Clear Urine pH 5.5 Ur Specific [place] >= 1.030 Urine Protein Trace Urine Glucose (UA) Negative Urine Ketones Negative Urine Blood Negative Urine Nitrite Negative Urine Bilirubin Negative Urine Urobilinogen 0.2 Ur Leukocyte Esterase Negative Urine RBC 0-1 Urine WBC 0-1 Ur Epithelial Cells 0 Urine Bacteria 0 Urine Mucus Moderate - EKG/XRAY/CT EKG: Atrial, Fibrillation - with RVR, HR 120, no ST elevs or q waves noted, axis & intervals normal, nonspecific ST abnormality noted, compared to 12/30/18 EKG sinus ken now resolved and a-fib is new. XRAY: chest - R infrahilar atelectasis vs infiltrate present per my read, otherwise no acute processes Departure - Departure Clinical Impression: Atrial fibrillation with rapid ventricular response Time of Disposition: 21:00 Disposition: Admit Patient Condition: Fair Home Medications: Ambulatory Orders Apixaban [Eliquis] 2.5 mg PO BID 04/07/18 Amlodipine Besylate 5 mg PO DAILY 07/24/19 Lisinopril 10 mg PO DAILY 07/24/19 Metoprolol Succinate [Toprol Xl] 50 mg PO BEDTIME 07/24/19 Decision To Admit - Decistion To Admit Decision to Admit Reason: Admit from ER Decision to Admit Date: 07/24/19 Decision to Admit Time: 21:01
[2019-07-24] MEDS ORDERED: NITROGLYCERIN 0.4 MG 25 EA TAB SL PRN (23:22)
[2019-07-24] MEDS ORDERED: ACETAMINOPHEN 325 MG TAB PO PRN (23:22)
[2019-07-24] MEDS ORDERED: MORPHINE SULFATE INJ 10 MG/ML VIAL IV PRN (23:22)
[2019-07-24] MEDS ORDERED: NON-FORMULARY MEDICATION 1 EA MIS (Apixaban [Eliquis] 2.5 MG) PO SCH (23:30)
[2019-07-24] MEDS ORDERED: IV SET AND CAP CHANGE INJ INJ SCH (23:30)
[2019-07-24 23:32] VITALS: O2SAT 98
[2019-07-24] MEDS ORDERED: APIXABAN 5 MG TAB PO ONE (23:50)
[2019-07-24] MEDS ORDERED: METOPROLOL SUCCINATE XL 50 MG TAB ONE (23:51)
[2019-07-25] MEDS ORDERED: APIXABAN 5 MG TAB PO ONE (07:16)
[2019-07-25] MEDS ORDERED: LISINOPRIL 10 MG TAB ONE (07:17)
[2019-07-25] MEDS ORDERED: SODIUM CHLORIDE 0.9% (FLUSH) 10 ML SYG IV SCH (09:00)
[2019-07-25] MEDS ORDERED: APIXABAN 5 MG TAB PO SCH (09:00)
[2019-07-25] MEDS ORDERED: LISINOPRIL 10 MG TAB PO SCH (09:00)
[2019-07-25] MEDS ORDERED: amLODIPine BESYLATE 5 MG TAB PO SCH (09:00)
[2019-07-25 09:34] VITALS: BP 124/72; TEMP 98
[2019-07-25] MEDS ORDERED: METOPROLOL SUCCINATE XL 50 MG TAB PO SCH (21:00)
--- NOTE | 2019-07-26 09:19 | SSS ---
SUPERVISING PHYSICIAN: Yoshi Molina MD DATE OF ADMISSION: 07/24/19 DATE OF DISCHARGE: 07/25/19 ADMISSION DIAGNOSIS: 1. Atrial fibrillation with rapid ventricular response. 2. Hypotension secondary to #1. 3. Renal insufficiency, likely due to mild hypovolemia. DISCHARGE DIAGNOSIS: 1. Atrial fibrillation with controlled ventricular rate on beta william and Eliquis. 2. Renal insufficiency, likely due to mild hypovolemia, requiring further followup as an outpatient. CHIEF COMPLAINT: Low blood pressure. HISTORY OF PRESENT ILLNESS: Mr. Griffin is an 83-year-old male patient with a history of atrial fibrillation currently on Eliquis and metoprolol. He presented to the Emergency Room yesterday with complaints of low blood pressure at home and high heart rate. He endorses he first noticed he had abnormal blood pressures and heart rates at home with heart rate around 125. He endorses that his blood pressure at home actually got down in the 80s systolics with elevated heart rate. Given those symptoms and some lightheadedness, he decided to present to the Emergency Department for evaluation. He denied any chest pains, dyspnea, palpitations, fevers, cough, any other significant findings. He does see Dr. Forte for cardiology. His initial workup in the Emergency Room showed normal CBC. Chemistries just showed an elevated creatinine of 1.55. BNP was elevated at 680, but troponins were less than 0.02. Liver functions were all within normal limits as well as electrolytes. Urinalysis was unremarkable. A chest x-ray in the Emergency Room per radiologic interpretation just showed infiltrate and atelectatic changes in the right infrahilar region. His EKG initially I the ER did show atrial fibrillation with rapid ventricular response in the 120s. He was given a bolus of saline as well as Cardizem IV push which resulted in his heart rates going into the 90s and showing to be stable. At that time, his EKG was showing atrial fibrillation with a controlled ventricular rate. Blood pressures initially in the Emergency Room prior to fluids did show he was hypotensive with blood pressure 88/59 with saturation 98% on room air. He was afebrile after he was in a controlled rhythm with atrial fibrillation. Blood pressure at time of admission was 138/81, saturation 98% on room. Given that he was stable without any chest pains, but had a mild hypotension that responded to fluid resuscitation, the patient was placed in observation for continuation of treatment and evaluation and monitoring. PAST MEDICAL HISTORY: 1. Atrial fibrillation diagnosed in 2018 on Eliquis and metoprolol. PAST SURGICAL HISTORY: 1. Bilateral cataract surgeries. HOME MEDICATIONS: 1. Metoprolol 50 mg at bedtime. 2. Eliquis 2.5 mg b.i.d. 3. Lisinopril 10 mg daily. 4. Amlodipine 5 mg daily. ALLERGIES: NO KNOWN DRUG ALLERGIES. FAMILY HISTORY: Unremarkable. 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 He does have a history of smoking, but quit in 2016 and drinks alcohol fairly regularly, he reports around a 6-pack a week. He is and lives by himself. REVIEW OF SYSTEMS: CONSTITUTIONAL: Negative for any fevers, chills, general malaise. HEENT: Negative for headaches, sore throats, earaches, nasal congestion, vision changes. RESPIRATORY: Negative for shortness of breath, coughing, wheezing. CARDIOVASCULAR: As noted in history of present illness. Denies any actual chest pains. GASTROINTESTINAL: Negative for nausea, vomiting, diarrhea, constipation or abdominal pain. GENITOURINARY: Negative for dysuria, hematuria, polyuria. MUSCULOSKELETAL: No muscle aches or joint swelling. SKIN: Negative for lesions, rashes, moles or unexplained changes. NEUROLOGIC: Denies ataxia, seizures syncopal episodes or other focal deficits. HEMATOLOGIC: Denies easy bruising, unexplained bleeding or transfusion reactions. PHYSICAL EXAMINATION: VITAL SIGNS: Blood pressure on admission showed hypotension at 88/59 with heart rate 115 showing atrial fibrillation on the monitor. Temperature 98.1. O2 saturation 98%. On discharge, blood pressure was stable at 124/72, heart rate 63, temperature 98, O2 and therefore 98% on room air. GENERAL: The patient was resting comfortably, did not appear in any acute distress. HEENT: Tympanic membranes clear bilaterally. Oropharynx is pink, moist without any lesions. NECK: Supple, nontender with full range of motion. No jugular venous distention noted. RESPIRATORY: Lung sounds are clear to auscultation bilaterally without any rhonchi, wheezes or rales. CARDIOVASCULAR: Slightly irregular rate and rhythm, but controlled ventricular rate without any appreciable murmurs, gallops, or rubs. ABDOMEN: Soft, nontender. Positive bowel sounds. EXTREMITIES: There is no edema. NEUROLOGIC: Cranial nerves II-XII are grossly intact. Facial features are symmetrical. Extraocular movements are within normal limits. There is no nystagmus noted. The patient is alert and oriented times three. SKIN: Warm, pink and dry. LABORATORY: CBC showed normal white count. Chemistries showed normal electrolytes. Creatinine 1.55. Liver functions all within normal limits. Troponin was less than 0.02. He had an elevated BNP of 680. Urinalysis was within normal limits. RADIOLOGY: Chest x-ray just showed an infiltrate versus atelectatic changes in the right infrahilar region. No other acute changes were noted. HOSPITAL COURSE: Mr. Griffin was admitted from the Emergency Room for atrial fibrillation with rapid ventricular response which was actually controlled prior to admission to the Floor with Cardizem. He was also given his beta william at night. He was given fluid boluses which helped his blood pressure. Again, he was clinically stable at time placement in observation. He had no recurrence of his rapid ventricular response and well controlled ventricular rate with his atrial fibrillation. He had no clinical complaints as far as chest pain, nausea, vomiting, diaphoresis, shortness of breath. No further interventions were required. He was stable and it is felt he can be continued as an outpatient for followup. PLAN: Mr. Griffin was discharged to followup with Dr. Grace in the following week. He was to continue his medications which included beta william, ALEXX and Eliquis. He was to resume his usual diet as tolerated. He was encouraged to stop drinking alcohol. He was encouraged to stay hydrated, but watch his fluid intake to prevent any fluid overload. He was to increase his activity as tolerated. He was told to return to the Emergency Room or call Dr. Grace's office should he have any concerning or worsening symptoms or recurrence of his symptoms. No medications were prescribed on discharge. He was already on metoprolol 50 mg at bedtime and Eliquis 2.5 mg b.i.d. He probably does need to have continued workup given the elevated BNP, but current signs of congestive heart failure. We could not find a current echocardiogram, which probably needs to be followed up on. DISPOSITION: The patient was discharged home. CONDITION ON DISCHARGE: Stable and improved. #[id number] [facility]
== END 2019-07-25 11:50 | disposition home or self-care (01) ==
LOC: ER 18:08 → MS 21:38
PROVIDERS: ADMIT Nurse Practitioner Family; ATTEND Nurse Practitioner Family
DX: I48.20 Chronic atrial fibrillation, unspecified (principal); N28.9 Disorder of kidney and ureter, unspecified; E86.1 Hypovolemia; I95.9 Hypotension, unspecified; I49.3 Ventricular premature depolarization; I10 Essential (primary) hypertension; J44.9 Chronic obstructive pulmonary disease, unspecified; Z79.01 Long term (current) use of anticoagulants; Z79.899 Other long term (current) drug therapy; Z87.891 Personal history of nicotine dependence
CPT/HCPCS: 96374; 96376; J7030; 80053; 81001; 85025; 84484; 83880; 83605; 71045; 94760; 99285; 93005

== ENCOUNTER 2019-10-23 16:00 | Emergency (ER) | payer MEDICARE ==
[2019-10-23 18:28] VITALS: O2SAT 96
--- NOTE | 2019-10-23 18:40 | ED.PDOC ---
History of Present Illness - General Chief Complaint: Respiratory Problem Stated Complaint: cough,low grade fever,wants COVID test Time Seen by Provider: 10/23/19 16:05 Source: patient Exam Limitations: no limitations - History of Present Illness Initial Comments: The patient is a 84-year-old male presented emergency room secondary to concern that he may have COVID. Apparently the patient had diarrhea 1 day about 4- 5 days ago. He is otherwise been asymptomatic. He is concerned however because he did go to a social gathering recently. No other symptoms. No hypoxia. Vital signs are stable. No abdominal pain. No fever. No sore throat. No respiratory symptoms. Timing/Duration: other Severity: mild Improving Factors: nothing Worsening Factors: nothing Associated Symptoms: denies symptoms Allergies/Adverse Reactions: Allergies NO KNOWN ALLERGY Allergy (Verified 07/25/19 00:02) Home Medications: Ambulatory Orders Apixaban [Eliquis] 2.5 mg PO BID 04/07/18 Amlodipine Besylate 5 mg PO DAILY 07/24/19 Lisinopril 10 mg PO DAILY 07/24/19 Metoprolol Succinate [Toprol Xl] 50 mg PO BEDTIME 07/24/19 Review of Systems - Review of Systems Constitutional: States: no symptoms reported EENTM: States: no symptoms reported Respiratory: States: no symptoms reported Cardiology: States: no symptoms reported Gastrointestinal/Abdominal: States: diarrhea Genitourinary: States: no symptoms reported Musculoskeletal: States: no symptoms reported Skin: States: no symptoms reported Neurological: States: no symptoms reported Endocrine: States: no symptoms reported All other Systems: No Change from Baseline Past Medical History (General) - Patient Medical History Hx Seizures: No Hx Stroke: No Hx Dementia: No Hx Asthma: No Hx of COPD: Yes Hx Cardiac Disorders: Yes - Atrial fib Hx Congestive Heart Failure: No Hx Pacemaker: No Hx Hypertension: Yes Hx Thyroid Disease: No Hx Diabetes: No Hx Gastroesophageal Reflux: No Hx Renal Disease: No Hx Cancer: No Hx of HIV: No Hx Hepatitis C: No Hx MRSA: No Surgical History: no surgical history - Vaccination History Hx Tetanus, Diphtheria Vaccination: No Hx Influenza Vaccination: Yes Hx Pneumococcal Vaccination: No - Social History Hx Tobacco Use: Yes Hx Alcohol Use: No Hx Substance Use: No Hx Physical Abuse: No Hx Emotional Abuse: No Family Medical History - Family History Mother Family History: Unknown Living Status: Father Family History: Unknown Living Status: Cause of : Old age Physical Exam - Physical Exam General Appearance: Alert, Anxious, Comfortable, No apparent distress Eye Exam: bilateral normal Ears, Nose, Throat: hearing grossly normal, normal pharynx Neck: full range of motion, supple Respiratory: lungs clear, normal breath sounds, no respiratory distress, no accessory muscle use Cardiovascular/Chest: normal peripheral pulses, no edema, other - Regular rate Peripheral Pulses: radial,right: 2+, radial,left: 2+ Gastrointestinal/Abdominal: non tender, soft Rectal Exam: deferred Extremity: normal range of motion, no pedal edema, normal capillary refill Neurologic: hostess host II-XII nml as tested, alert, normal mood/affect, oriented x 3 Skin Exam: normal color Comments: Vital Signs - 24 hr 10/23/19 10/23/19 10/23/19 16:16 16:40 17:21 Temperature 97.8 F Pulse Rate [ 71 62 Right Brachial] Respiratory 20 20 20 Rate Blood Pressure 140/72 133/73 [Right Arm] O2 Sat by Pulse 96 97 Oximetry 10/23/19 18:00 Temperature Pulse Rate [ 65 Right Brachial] Respiratory 18 Rate Blood Pressure 132/73 [Right Arm] O2 Sat by Pulse 96 Oximetry Progress - Progress Progress: 10/23/19 18:39 The patient is an 84-year-old male presenting secondary to concern for coronavirus infection due to an episode of diarrhea a few days ago and group exposure. Coronavirus swab has been taken. The initial testing run had an error so it is being repeated. Due to the patient's lack of current symptoms and stable vital signs, the patient will be allowed to go home and he will be called with the results. For now until he gets the results, he needs to avoid interacting with other people. ER warnings are given. [email or web address] [email or web address] [id number] Departure - Departure Clinical Impression: Diarrhea Qualifiers: Diarrhea type: unspecified type Qualified Code(s): R19.7 - Diarrhea, unspecified Disposition: Discharge to Home or Self Care Condition: Fair Departure Forms: ED Discharge - Pt. Copy, Patient Portal Self Enrollment Diet: bland diet Activity: increase activity as tolerated Referrals: Tashi Lockett MD [Primary Care Provider] - 1-2 Weeks Home Medications: Ambulatory Orders Apixaban [Eliquis] 2.5 mg PO BID 04/07/18 Amlodipine Besylate 5 mg PO DAILY 07/24/19 Lisinopril 10 mg PO DAILY 07/24/19 Metoprolol Succinate [Toprol Xl] 50 mg PO BEDTIME 07/24/19 Additional Instructions: The patient is an 84-year-old male presenting secondary to concern for coronavirus infection due to an episode of diarrhea a few days ago and group exposure. Coronavirus swab has been taken. The initial testing run had an error so it is being repeated. Due to the patient's lack of current symptoms and stable vital signs, the patient will be allowed to go home and he will be called with the results. For now until he gets the results, he needs to avoid interacting with other people. ER warnings are given.
[2019-10-23 18:53] VITALS: BP 125/74; TEMP 97.4
== END 2019-10-23 18:53 | disposition home or self-care (01) ==
LOC: ER 16:00
DX: R19.7 Diarrhea, unspecified (principal); R05 Cough; R50.9 Fever, unspecified; J44.9 Chronic obstructive pulmonary disease, unspecified; I48.91 Unspecified atrial fibrillation; I10 Essential (primary) hypertension; Z79.01 Long term (current) use of anticoagulants; Z79.899 Other long term (current) drug therapy; Z87.891 Personal history of nicotine dependence; Z20.828 Contact with and (suspected) exposure to other viral communicable diseases